=== PATIENT | female | born 1940 | race Caucasian/White ===

== ENCOUNTER 2018-10-19 10:28 | Emergency (ER) | payer OTHER ==
--- NOTE | 2018-10-19 11:05 | EDPHY ---
H & P Stated Complaint: 2 weeks of body aches, cough Time Seen by Provider: 10/19/18 10:34 HPI/ROS: This patient complains of generalized fatigue and a 2 week history of a dry cough. She states that she feels she has chest congestion associated with this but does not bring up sputum. She has mild dyspnea associated with this in addition. She explains that she just returned last night from 2 and half months in [facility] visiting her sister. She does not feel that her symptoms are significant worsening but simply have drug on for 2 weeks without improvement, prompting her visit today. She reports associated mild nasal congestion. She also reports chronic leg pain bilaterally that is moderate in unchanged. She came in by private vehicle for evaluation. ROS: Constitutional: No high fevers. She denies chills but reports that"her bones feel cold" HEENT: Mild frontal headache similar to prior headaches, mild left ear pain and nasal congestion. The patient also complains of swelling to the right eyelid in discomfort over the past handful of days Pulmonary: Mild dyspnea and cough as mentioned in HPI. No pleuritic pain. No hemoptysis. No respiratory distress Cardiovascular: No chest pain. She does describe intermittent heart palpitations occasional lightheadedness. She denies lower extremity swelling. GI: No abdominal pain. She has had diarrhea intermittently over the past 2 weeks. She has intermittent cramping but none currently. No nausea or vomiting. : She reports urinary frequency without dysuria. No flank pain or other complaints. Integumentary: No pallor, rash or diaphoresis. 10 point review of symptoms is performed and otherwise negative with exception of pertinent positives and negatives listed in HPI and ROS Source: Patient Exam Limitations: No limitations - Personal History Current Tetanus/Diphtheria Vaccine: No Current Tetanus Diphtheria and Acellular Pertussis (TDAP): No - Medical/Surgical History PMH: Family history is positive for a sister with an MD in her 50s. Hx Asthma: No Hx Chronic Respiratory Disease: No Hx Diabetes: No Hx Cardiac Disease: No Hx Renal Disease: No Hx Cirrhosis: No Hx Alcoholism: No Hx HIV/AIDS: No Hx Splenectomy or Spleen Trauma: No Other PMH: HTN, GERD, kidney stones, bladder infections, high cholesterol, osteoporosis. tubal ligation, appy - Family History Significant Family History: Heart disease (Sister with MD in her 50s) - Social History Smoking Status: Former smoker (Quit more than 10 years ago) Alcohol Use: Occasionally Drug Use: None - Physical Exam Exam: General Appearance: Alert, no distress. Eyes: Pupils equal and round no pallor or injection. ENT, Mouth: Mucous membranes moist. Right eyelid is notable for swelling with small cyst at the eye lash margin and upper eyelid Respiratory: There are no retractions, lungs are clear to auscultation. Cardiovascular: Regular rate and rhythm. Gastrointestinal: Abdomen is soft and nontender, no masses, bowel sounds normal. Neurological: GCS 15 with no focal deficits. Skin: Warm and dry, no rashes. Musculoskeletal: Neck is supple nontender. Extremities are symmetrical, full range of motion. She has bilateral calf tenderness without significant edema. Psychiatric: Mood and affect are normal DIFFERENTIAL DIAGNOSIS: After history and physical exam differential diagnosis was considered for bronchitis, pneumonia, congestive heart failure-early, pulmonary embolism, anemia, renal insufficiency, UTI, viral syndrome, influenza , myocardial ischemic disease Constitutional: Initial Vital Signs Temperature (C) 36.6 C 10/19/18 10:34 Heart Rate 102 H 10/19/18 10:34 Respiratory Rate 16 10/19/18 10:34 Blood Pressure 143/106 H 10/19/18 10:34 O2 Sat (%) 92 10/19/18 10:34 O2 Delivery Mode Room Air Allergies/Adverse Reactions: iodine Allergy (Verified 10/19/18 10:34) latex Allergy (Verified 10/19/18 10:34) Home Medications: Medication Instructions Recorded Lisinopril 09/05/16 Paxil 09/05/16 Simvastatin 09/05/16 Albuterol Hfa Anes Only [Proair 2 puffs IH Q4 PRN #1 mdi 10/19/18 Hfa Icu (*)] Azithromycin [Zithromax] 250 mg PO DAILY #6 tab 10/19/18 Calcium 10/19/18 Erythromycin 0.5% 1 nancy RTEYE BID #5 g 10/19/18 Levothyroxine 10/19/18 Metoprolol Tartrate 10/19/18 Omeprazole 10/19/18 Vitamin D3 10/19/18 Medical Decision Making - Diagnostics EKG Interpretation: 12 lead EKG performed shortly after arrival indication fatigue mild dyspnea and cough Sinus rhythm at a rate of 95 this EKG performed at 11:18 a.m. 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 No evidence of acute ischemia Imaging Results: Imaging Impressions Chest X-Ray 10/19/18 11:00 Impression: 1. Moderate perihilar bronchitis, which may be secondary to a virally-mediated process and/or reflecting underlying airways' disease. There is no focal infiltrate observed. 2. Tortuosity of the descending thoracic aorta. Two view chest x-ray: Findings consistent with bronchitis. No focal infiltrates or other significant abnormalities by my interpretation ED Course/Re-evaluation: IV EKG Studies: POC CBC is normal, basic metabolic panel is normal, troponin is normal , D-dimer is normal, influenza negative Discussion: Patient is here with findings consistent with bronchitis and fatigue. Find no evidence of acute coronary syndrome, PE or other red flag findings. Will plan to treat the patient with albuterol and Zithromax. Counseled regarding this. I also counseled regarding evidence of old inferior infarct on her EKG. I advised close follow up with Cardiology as an outpatient though I do not think she is having acute cardiac ischemia coronary syndrome currently. She understands need to return should she have significant worsening of her symptoms despite treatment plan - Data Points Laboratory Results: 10/19/18 10/19/18 12:18 11:31 POC Sodium 143 mEq/L mEq/L (135-145) POC Potassium 3.8 mEq/L mEq/L (3.3-5.0) POC Chloride 105.0 mEq/L mEq/L (97-110) POC Total CO2 25 mEq/L mEq/L (22-31) POC BUN 16 mg/dL mg/dL (7-23) POC Creatinine 0.9 mg/dL mg/dL (0.6-1.0) POC Glucose 103 mg/dL H mg/dL (70-100) POC Calcium 10.6 mg/dL H mg/dL (8.5-10.4) POC Troponin I 0.00 ng/mL ng/mL (0.00-0.08) Point of Care Test Results: CBC CBC Collection Date 10/19/18 CBC Collection Time 11:21 WBC 6.5 RBC 4.18 HGB 13.3 HCT 39.7 PLT 334 Neut # 3.7 Neut 57.3 LYMPH # 2.0 LYMPH 30.2 Other WBC # 0.8 Other WBC 12.5 MCV 95.0 Chemistry 10/19/18 10/19/18 12:18 11:31 POC Sodium 143 mEq/L mEq/L (135-145) POC Potassium 3.8 mEq/L mEq/L (3.3-5.0) POC Chloride 105.0 mEq/L mEq/L (97-110) POC Total CO2 25 mEq/L mEq/L (22-31) POC BUN 16 mg/dL mg/dL (7-23) POC Creatinine 0.9 mg/dL mg/dL (0.6-1.0) POC Glucose 103 mg/dL H mg/dL (70-100) POC Calcium 10.6 mg/dL H mg/dL (8.5-10.4) POC Troponin I 0.00 ng/mL ng/mL (0.00-0.08) D-Dimer D-Dimer Collection Date 10/19/18 D-Dimer Collection Time 11:21 D-Dimer (ng/ml) 122 Influenza PCR Flu Nasal Swab Collection Date 10/19/18 Flu Nasal Swab Collection Time 11:50 Influenza A Result Not Detected Influenza B Result Not Detected Urine Dip Collection Date 10/19/18 Collection Time 12:00 Specific [place] (1.002-1.030) 1.020 PH (5.0-7.5) 7.0 Leukocytes (Negative) Trace Nitrites (Negative) Negative Protein (Negative) 2+ Glucose (Negative) Negative Ketones (Negative) Negative Urobilnogen (0.2-1.0 EU) 0.2 Bilirubin (Negative) Negative Blood (Negative) 1+ Departure - Departure Disposition: Home, Routine, Self-Care Clinical Impression: Acute chalazion of right eye Acute bronchitis Qualifiers: Bronchitis organism: unspecified organism Qualified Code(s): J20.9 - Acute bronchitis, unspecified Condition: Good Instructions: Chalazion (ED), Acute Bronchitis (ED) Additional Instructions: Diagnosis: Acute bronchitis 2. Nemo Wilkerson eyelid Plan: Humidifier Albuterol inhaler Zithromax antibiotic Apply warm packs 2 times a day and apply erythromycin ointment 2 times a day for 7 days to eyelid. Call research program assistant listed below-Dr. Michaud if you're still improving with treatment plan over the next 3-5 days Although does not appear the have a current or recent heart problem, you do have slightly abnormal EKG and should follow up with Dr. Lita Vences- aquatic director as an outpatient for further evaluation. Return emergency department if you developed chest pain, increasing shortness of breath, despite treatment plan or any other concerns Follow-up with primary care physician for any ongoing symptoms Referrals: Louise Gibbons DO [Primary Care Provider] - As per Instructions Lita Vences MD [Medical Doctor] - As per Instructions Tiffany Michaud MD [Medical Doctor] - As per Instructions Prescriptions: Albuterol Hfa Anes Only [Proair Hfa Icu (*)] 2 puffs IH Q4 PRN #1 mdi PRN Reason: Wheezing Azithromycin [Zithromax] 250 mg PO DAILY #6 tab Erythromycin 0.5% 1 nancy RTEYE BID #5 g
[2018-10-19 12:49] VITALS: BP 127/80
--- NOTE | 2018-10-19 14:08 | CPEKG ---
Test Reason : OPEN Blood Pressure : / mmHG Vent. Rate : 095 BPM Atrial Rate : 095 BPM P-R Int : 161 ms QRS Dur : 077 ms QT Int : 354 ms P-R-T Axes : 033 -05 026 degrees QTc Int : 445 ms Sinus rhythm Inferior infarct, old Confirmed by Mateo Negrete ([id number]) on 10/19/2018 2:08:07 PM Referred By: Confirmed By:Mateo Negrete
== END 2018-10-19 12:53 | disposition home or self-care (01) ==
LOC: CED 10:28
DX: J20.9 Acute bronchitis, unspecified (principal); H00.11 Chalazion right upper eyelid; M79.604 Pain in right leg; M79.605 Pain in left leg; G89.29 Other chronic pain; Z82.49 Family history of ischemic heart disease and other diseases of the circulatory system
CPT/HCPCS: 71046-PO; 80048-ER; 84484-ER; 99284-ER

== ENCOUNTER → 2019-01-28 | Outpatient (CLI) | payer OTHER | LOC: CIMAGING 09:55 | PROVIDERS: ATTEND Family Medicine | DX: M19.011 Primary osteoarthritis, right shoulder (principal) | CPT/HCPCS: 73030-PO ==